=== PATIENT | female | born 1980 | race Caucasian/White ===

== ENCOUNTER → 2019-09-20 12:27 | Outpatient (CLI) | payer OTHER, SELFPAY ==
[2019-09-13 08:15] VITALS: BMI 26.6
--- NOTE | 2019-09-20 12:28 | BI_ITS ---
MAMMOGRAPHY - BILATERAL SCREENING REASON FOR EXAM: Female, 39 years old. Routine annual screening examination. PERTINENT HISTORY: Aunt with breast cancer. TECHNIQUE: Digital bilateral breast gayle (3D mammographic acquisition) in the CC and MLO projections. 2-D mediolateral oblique (MLO) and craniocaudad (CC) views of both breasts were obtained. CAD: Full Field Digital Mammography with Computer Added Detection was performed. COMPARISON: Comparison is made with prior study dated May 13, 2018. FINDINGS: Breast Composition: The breasts are heterogeneously dense, which may obscure small masses. There are no dominant masses or suspicious calcifications. No other significant abnormalities are identified. There has been no significant change since the prior study. BI/SCREEN MAMM (CAD) W/GAYLE BILAT IMPRESSION: Stable bilateral screening mammogram. Yearly follow-up mammogram recommended. (A) ASSESSMENT CATEGORY: BIRADS Category 1: Negative. A letter regarding these results will be sent to the patient by the facility within 30 days. Approximately 10% of breast cancers are not detected by mammography. A normal mammogram should not delay biopsy of a clinically suspicious abnormality. [id number] Electronically Signed: Jaswinder Penn, at 14:41 EST , Service support ,
== END ==
PROVIDERS: Family Provider Internal Medicine; PCP Internal Medicine; Referring Provider Obstetrics & Gynecology; Visit Provider Obstetrics & Gynecology
DX: Z12.31 Encounter for screening mammogram for malignant neoplasm of breast (principal)
CPT/HCPCS: 77063; 77067

== ENCOUNTER → 2019-09-30 10:37 | Outpatient (CLI) | payer OTHER, SELFPAY ==
--- NOTE | 2019-09-30 01:40 | LES_PTH ---
PATIENT: NILDA WARD LOC: [facility] U#:[id number] AGE/SX: 45/F ROOM: RE09/30/[address]: Dr. Azael Beal MD : 1980 BED: DIS: SPEC #: [id number] RECD: 09/30/19 10:28 STATUS: ASHVIN MARGA #: [id number] DARLIN: 09/30/19 01:[address]: Azael Beal DEPT: SURGICAL PATHOLOGY RECD BY: Vimal Thakkar ENTERED: 09/30/19 11:35 SP TYPE: Lesion OTHR DR: Dr. Sarah Astudillo, DO Tissues: Flank, NOS Procedures: Surgery Specimen Level III HEADER OPERATION: Excision of right flank subcutaneous lesion PRE-OP DIAGNOSIS: Subcutaneous lesion TISSUE SUBMITTED: Right flank subcutaneous lesion MICROSCOPIC DIAGNOSIS Right flank subcutaneous lesion, excision: Angiolipoma. SJ:estefanía 10/01/19 MICROSCOPIC DESCRIPTION Slides are reviewed. GROSS DESCRIPTION Received in fixative is one container labeled with the patient's name and designated right flank subcutaneous lesion. The specimen consists of an irregular piece of adipose tissue measuring 2.5 x 2 x 1.5 cm. The external surface is inked. Sections reveal yellow adipose cut surfaces without areas of hemorrhage, necrosis or cystic degeneration. [employer] sections are submitted in two cassettes. / SJ:estefanía 09/30/19 TC:1 CPT: 92600
[2019-09-30 07:51] VITALS: BMI 26.6
== END ==
PROVIDERS: Family Provider Internal Medicine; PCP Internal Medicine; Referring Provider Surgery; Visit Provider Surgery
DX: D17.39 Benign lipomatous neoplasm of skin and subcutaneous tissue of other sites (principal)
CPT/HCPCS: 88304; 88305

== ENCOUNTER → 2019-10-07 15:53 | Outpatient (CLI) | payer OTHER, SELFPAY ==
--- NOTE | 2019-10-07 | IMM_PTH ---
PATIENT: NILDA WARD LOC: [facility] U#:[id number] AGE/SX: 45/F ROOM: RE10/07/[address]: Dr. Azael Beal MD : 1980 BED: DIS: SPEC #: [id number] RECD: 10/09/19 11:30 STATUS: ASHVIN REQ #: [id number] DARLIN: 10/07/19 00:[address]: Azael Beal DEPT: IMMUNOHISTOCHEMISTRY RECD BY: King Tirado ENTERED: 10/09/19 11:31 SP TYPE: IMMUNO OTHR DR: Dr. Sarah Astudillo DO Tissues: Skin of leg, NOS Procedures: P53 (add) Vimentin (add) Pankeratin (initial) MELAN-A (add) PHYSICIAN & INSTITUTION [place] [id number] SPECIMEN INFORMATION: Tissue Source: A. Punch biopsy, skin lesion left inner thigh Clinical Info: Skin lesion Specimen Number: [id number] CPT code: 36179, 34424 x4 METHODOLOGY: Deparaffinized sections of prefer/formalin-fixed tissue or PAP/DQ stained slides are incubated with monoclonal/polyclonal antibodies/oligonucleotide probes. Localization is made via biotin free immunoperoxidase method. Appropriate controls are performed and reacted as expected. Results on target cell population are indicated in the following table: RESULTS: ANTIBODY / CLONE RESULT Block A AE1-3 (AE1/AE3/PCK26) negative Vimentin (V9) positive Melan A (A103) positive S-100 (4C4.9) positive P53 (DO-7) negative These tests were developed and their performance characteristics determined by [facility]. They may not have been cleared or approved by the U.S. Food and Drug Administration. The FDA has determined that such clearance or approval is not necessary. The above immunohistochemical/dualISH markers are ordered and reviewed by the Pathologist. INTERPRETATION: A. Skin lesion, left inner thigh, punch biopsy: Consistent with dysplastic junctional nevus. AM:estefanía 10/15/19
--- NOTE | 2019-10-07 13:00 | LES_PTH ---
PATIENT: NILDA WARD LOC: [facility] U#:[id number] AGE/SX: 45/F ROOM: RE10/07/[address]: Dr. Azael Beal MD : 1980 BED: DIS: SPEC #: [id number] RECD: 10/07/19 15:36 STATUS: ASHVIN REEdil #: [id number] DARLIN: 10/07/19 13:[address]: Azael Beal DEPT: SURGICAL PATHOLOGY RECD BY: King Tirado ENTERED: 10/08/19 10:52 SP TYPE: Lesion OTHR DR: Dr. Sarah Astudillo DO Tissues: A - Skin of leg, NOS B - Skin of leg, NOS Procedures: Surgery Specimen Level IV HEADER OPERATION: Punch biopsy, skin lesion left inner thigh, excision skin lesion of left fagan PRE-OP DIAGNOSIS: Skin lesion L89.9 TISSUE SUBMITTED: A. Punch biopsy, skin lesion left inner thigh, B. Skin lesion, left fagan MICROSCOPIC DIAGNOSIS A. 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 B. Skin lesion of left fagan, punch biopsy: Capillary hemangioma. AM:estefanía 10/15/19 COMMENT A.Immunohistochemistry ([id number]) supports the above diagnosis. The lesion is excised in the planes examined. This was seen in consultation with Dr. Grider of [facility]. Complete consultative report is viewable in EMR. Case has been reviewed in consultation with Dr. Chowdhury who concurs with the above diagnosis. IDC:SJ MICROSCOPIC DESCRIPTION Slides are reviewed. GROSS DESCRIPTION A. Received in fixative is one container labeled with the patient's name and designated skin lesion left inner thigh. The specimen consists of a light than punch biopsy of skin measuring 0.4 mm in diameter and 0.5 cm in length. The specimen is submitted in its entirety in one cassette. B. Received in fixative is one container labeled with the patient's name and designated skin lesion left fagan. The specimen consists of a cylindrical fragment of light cabrales soft tissue measuring 0.8 cm in length and 0.5 cm in diameter. The specimen is submitted in its entirety in one cassette. WILLY:marcos 10/08/19 TC:? CPT: 00964j7
[2019-10-07 13:06] VITALS: BMI 26.6
== END ==
PROVIDERS: Family Provider Internal Medicine; PCP Internal Medicine; Referring Provider Surgery; Visit Provider Surgery
DX: L98.9 Disorder of the skin and subcutaneous tissue, unspecified (principal)
CPT/HCPCS: 88305; 88341; 88342

== ENCOUNTER → 2019-12-13 11:27 | Outpatient (CLI) | payer OTHER, SELFPAY ==
[2019-10-07 13:06] VITALS: BMI 26.6
--- NOTE | 2019-12-13 11:31 | US_ITS ---
STUDY: THYROID ULTRASOUND REASON FOR EXAM: Female, 39 years old. NECK SWELLING TECHNIQUE: Ultrasound evaluation of the thyroid was performed with real-time and static aburto-scale imaging. COMPARISON: None. FINDINGS: RIGHT LOBE: The right lobe of the thyroid gland measures 4.9 cm x 2.1 cm x 1.9 cm. There is a homogeneous echotexture. There is a 3.3 cm x 3 cm x 2 cm complex solid and cystic nodule in the mid and lower pole of the right lobe of the thyroid. A biopsy is recommended for further evaluation. LEFT LOBE: The left lobe of the thyroid gland measures 5 cm x 1.5 cm x 1.6 cm. There is a homogeneous echotexture. There are no demonstrated solid, cystic or complex lesions. ISTHMUS: The isthmus measures 2.0 mm. The regional lymph nodes are normal. US/Thyroid IMPRESSION: Dominant complex nodule in the mid and lower pole of the right lobe of the thyroid measuring 3.3 cm x 3 cm x 2 cm. A biopsy is recommended for further evaluation. Electronically Signed: Jaswinder Penn, at 15:19 EST , Service support ,
== END ==
PROVIDERS: PCP Internal Medicine; Referring Provider Nurse Practitioner; Visit Provider Nurse Practitioner
DX: R22.1 Localized swelling, mass and lump, neck (principal)
CPT/HCPCS: 76536

== ENCOUNTER → 2019-12-25 | Outpatient (CLI) | payer OTHER, SELFPAY ==
--- NOTE | 2019-12-25 | ASPS_PTH ---
PATIENT: NILDA WARD LOC: [facility] U#:[id number] AGE/SX: 39/F ROOM: RE12/25/[address]: Dr. Azael Beal MD : 1980 BED: DIS: 12/25/2019 SPEC #: [id number] RECD: 12/25/19 16:14 STATUS: ASHVIN MARGA #: [id number] DARLIN: 12/25/19 00:[address]: Azael Beal DEPT: CYTOLOGY RECD BY: Stepan Collado ENTERED: 12/26/19 08:01 SP TYPE: ASPIRATION OTHR DR: Dr. Sarah Astudillo [facility], AUTHORIZER-C Tissues: Thyroid gland, NOS Procedures: Special Stain Group II Cytology Other HEADER OPERATION: Ultrasound-guided fine needle aspiration right thyroid PRE-OP DIAGNOSIS: Uninodular goiter E04.1 TISSUE SUBMITTED: Fine needle aspiration right thyroid (12 slides) DIAGNOSIS CYTOLOGY Right thyroid nodule, fine needle aspiration (smears): Adequate for evaluation. Negative, consistent with benign follicular/colloid nodule. AM:estefanía 12/27/19 CYTOLOGY STUDY Slides are reviewed. CYTOLOGY GROSS Received are 12 smears labeled with the patient's name and designated per the requisition as right thyroid. Submitted for staining. / estefanía 12/26/19 TC:6 CPT: 05293
[2019-12-25 14:59] VITALS: BMI 26.6
== END | disposition home or self-care (01) ==
LOC: LABSPEC 16:20
PROVIDERS: PCP Internal Medicine; Referring Provider Surgery; Visit Provider Surgery
DX: E04.1 Nontoxic single thyroid nodule (principal)
CPT/HCPCS: 88161; 88313

== ENCOUNTER → 2020-11-27 13:26 | Outpatient (CLI) | payer OTHER, SELFPAY ==
[2019-12-25 14:59] VITALS: BMI 26.6
--- NOTE | 2020-11-27 13:44 | CT_ITS ---
STUDY: CT ABDOMEN AND PELVIS WITH CONTRAST REASON FOR EXAM: Female, 40 years old. Diffuse abdominal pain and bloating. Change in stool for 2 weeks. RADIATION DOSAGE (If Supplied By Facility): CTDIvol = ( 17.70 ) mGy, DLP = ( 2280.01 ) mGycm TECHNIQUE: Transaxial images were obtained from the dome of the diaphragm to the symphysis pubis with oral contrast. Oral and amp; IV Gastrografin and amp; 100mL Isovue-300 was administered. Sagittal and coronal images were reconstructed. Individualized dose optimization techniques were used for this CT. COMPARISON: None. FINDINGS: The visualized lung bases are unremarkable. The visualized portions of the heart are within normal limits. The liver is enlarged. Somewhat heterogenous in density. Question geographic fatty infiltration. There is a hypodensity in segment 8 measuring less than 1 cm thought to be a cyst. There are irregular hypodensities in segment 6 of the liver may represent a mass. The gallbladder is collapsed with thickened edematous gallbladder wall. There are no gallstones. No biliary ductal dilatation or choledocholithiasis. Normal spleen. Normal pancreas. Normal bilateral adrenal glands. 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 Normal left kidney. Normal ureters. Normal visualized stomach. Normal small intestine. Normal colon. There is non-visualization of the appendix. Normal abdominal aorta. Normal inferior vena cava. Normal retroperitoneum. Normal urinary bladder. The uterus is anteverted and normal in shape. There is an exophytic soft tissue mass off the anterior fundal wall measuring up 1.7 cm in diameter thought to represent a fibroid. There is a 2.5 cm complex cyst in the right ovary. Normal left adnexa. There is diffuse moderate ascites in the pelvis right paracolic gutter and subphrenic spaces. Normal abdominal wall. Normal osseous structures. CT/Abdomen/Pelvis WITH Contrast IMPRESSION: 1. No evidence of bowel distention or obstruction. 2. Enlarged heterogenous liver with questionable low-attenuation mass in segment 6. 3. Moderate ascites. 4. Complex right ovarian cyst. 5. Pedunculated fibroid off the anterior uterine fundus. Electronically Signed: Lucius Lyle DO at 16:47 EST Tel [phone], Service support ,
[2020-11-27 13:49] LABS: Absolute Lymphocyte Count 1.31 X10^3/uL (0.83-4.51); Absolute Neutrophil Count 3.1 X10^3/uL (2.0-7.7); Basophil# 0.02 X10^3/uL; Basophil% 0.4 % (0-1); Eosinophil# 0.03 X10^3/uL; Eosinophils% 0.6 % (0-5); Hematocrit 30.9 % (37-47); Hemoglobin 9.4 g/dL (12.0-15.0); Lymphocyte # 1.31 X10^3/ul (4.0); Lymphocyte % 27.4 % (19-41); Mean Corp Hgb Conc 30.4 g/dL (32-36); Mean Corpuscular Hgb 26.5 pg (27.0-32.0); Mean Platelet Vol. 11.3 fl (6.2-12.0); Monocyte# 0.29 X10^3/uL; Monocyte% 6.1 % (0-10); NRBC Flagged by Analyzer 0 % (0-5); Neutrophil # 3.11 X10^3/uL (2.7-7.7); Neutrophil % 65.1 % (47-70); Platelet Count 103 K/mm3 (150-450); RBC Distribution Width CV 19.5 % (11.6-14.6); RBC Distribution Width SD 61.1 fl (35.1-43.9); Red Blood Count 3.55 M/mm3 (4.2-5.4); White Blood Count 4.8 K/mm3 (4.4-11.0)
[2020-11-27 14:18] LABS: AST(SGOT) 83 U/L (15-37); Alanine Aminotransfer ALT/SGPT 91 U/L (13-56); Albumin, Serum 3.4 g/dL (3.2-5.0); Alkaline Phosphatase 134 U/L (45-117); Amylase 42 U/L (25-115); Anion Gap 8 (5-15); BUN 13 mg/dL (7-18); BUN/Creat Ratio 18.5 RATIO (10-20); Chloride 108 mmol/L (98-107); EST Glomerular Filtration Rate 97 mL/min (>60); Est Glom Filt Rate - Afr Amer 117 mL/min (>60); Globulin 3.4 g/dL (2.2-4.2); Glucose 128 mg/dL (74-106); Lipase 172 U/L (73-393); Potassium 3.8 mmol/L (3.5-5.1); Protein, Total 6.8 g/dL (6.4-8.2); Sodium Level 139 mmol/L (136-145)
== END ==
PROVIDERS: PCP Internal Medicine; Referring Provider Nurse Practitioner; Visit Provider Nurse Practitioner
DX: R10.9 Unspecified abdominal pain (principal)
CPT/HCPCS: 36415; 74177; 80053; 82150; 83690; 85025; Q9967; A4216